=== PATIENT | female | born 1980 | race Caucasian/White ===

== ENCOUNTER 2021-04-10 10:13 | Outpatient (CLI) | payer BC, OTHER, SELFPAY ==
[2021-04-10 11:01] LABS: Anion Gap 10 mmol/L (8-16); Blood Urea Nitrogen 8 mg/dL (7-17); Calcium 8.6 mg/dL (8.4-10.2); Carbon Dioxide 21 mmol/L (22-30); Chloride 107 mmol/L (98-107); Estimated Glomerular Filt Rate > 60; Glucose 95 mg/dL (65-110); Potassium 3.3 mmol/L (3.4-5.0); Sodium 138 mmol/L (137-145)
[2021-04-10 11:02] LABS: INR 1.1; Prothrombin Time 13.7 Seconds (11.1-14.7)
[2021-04-10 11:03] LABS: Partial Thromboplastin Time 30.2 SECONDS (22.3-36.8)
[2021-04-10 11:22] LABS: Basophils Percent Auto 0.5 % (0.2-1.2); Eosinophils Absolute Auto 0.1 K/mm3 (0-0.3); Eosinophils Percent Auto 1.7 % (0-4.4); Hematocrit 42.8 % (37.0-47.0); Hemoglobin 14.3 g/dL (12.0-15.0); Immature Granulocyte Absolute 0.02 K/mm3 (0.00-0.031); Immature Granulocyte Percent A 0.3 % (0-0.5); Lymphocytes Absolute Auto 2.19 K/mm3 (0.9-3.2); Lymphocytes Percent Auto 32.9 % (18.3-44.2); Mean Corpuscular HGB Conc 33.4 g/dl (32-36); Mean Corpuscular Hemoglobin 29.9 pg (26-34); Mean Corpuscular Volume 89.4 fl (80-100); Mean Platelet Volume 9.6 fl (7.4-10.4); Monocytes Absolute Auto 0.5 K/mm3 (0.1-0.6); Monocytes Percent Auto 7.1 % (2.6-8.5); Neutrophils Absolute Auto 3.8 K/mm3 (1.3-6.7); Neutrophils Percent Auto 57.5 % (45.5-73.1); Platelet Count Result 269 k/mm3 (150-375); Red Blood Count 4.79 M/mm3 (4.2-5.4); Red Cell Distribution Width 13.7 % (11.5-14.5); White Blood Count 6.7 K/mm3 (4.5-10.0)
== END 2021-04-10 10:14 | disposition home or self-care (01) ==
LOC: ANHSURGERY 10:18
PROVIDERS: Anesthesiology; Visit Provider Obstetrics & Gynecology
DX: Z01.812 Encounter for preprocedural laboratory examination (principal); R10.2 Pelvic and perineal pain; N18.9 Chronic kidney disease, unspecified
CPT/HCPCS: 36415; 80048; 85025; 85610; 85730

== ENCOUNTER 2021-04-11 01:02 | Day surgery (SDC) | payer BC, OTHER, SELFPAY ==
[2021-04-08 10:26] VITALS: BMI 25.1
--- NOTE | 2021-04-08 11:02 | PC.NURSE ---
Report to the Outpatient Waiting Room, entrance under the green pavilion located off [facility], at time 6:00 on date 04/11/21. OR Time: 7:30. - You will be asked a series of questions to screen for COVID 19 for your protection. - A mask is required within the hospital. - No visitors are allowed at this time. Preoperative COVID Testing Requirements: TO BRING COPY OF CARD No COVID Test needed if: (proof is required; if not received patient will have Rapid Test prior to entry) - Patient has received COVID Vaccine at least 14 days prior to procedure date or - Patient has positive COVID test result within last 90 days of surgery date. COVID Test needed if above criteria is not met Patients may have clear liquids (water, carbonated beverages, clear teas, apple juice) until 3 hours prior to surgery (4:30) with a maximum of 20 ounces. - No food from midnight until time of surgery Take the following medications with a SIP of water the morning of surgery: ALPRAZOLAM, LEVOTHYROXINE, SERTRALINE Medications to discontinue per physician: VITAMINS/SUPPLEMENTS Date to take last dose: 04/07/[address] HANDY MEDINA Please no make-up, nail portuguese, hairspray, perfume, deodorant, or body powder the day of surgery. No jewelry (including any body piercings) or valuables the day of surgery, leave them at home. Please take a shower or bath the night before, or the morning of, surgery with an antibacterial soap. Wear comfortable, loose fitting clothing. - Jewelry must be removed prior to entering the operating room. Rings and piercings that are not removed may be cut off. - The hospital will not accept responsibility for valuables. - Please leave all valuables, including medications, at home the day of surgery. If you are going home after surgery, a licensed hearse driver must drive you home. - NO public transportation without another adult. - We recommend that an adult stay with you for 24 hours following discharge. - We also recommend that you do not drive, make important decision, drink alcoholic beverages, or take any drugs that were not prescribed by your health care provider for at least 24 hours after your discharge time. Follow any additional instructions given to you from your surgeon. Telephone instructions given to LADI PERALTA and asked if any additional questions and then verbalized understanding. Patient advised to call surgeon office or pre surgery nurse liaison [phone] if any additional questions.
--- NOTE | 2021-04-09 11:50 | PM.IMHP ---
H&P: HPI History of Present Illness Date/Time: 04/09/21 11:50 40-year-old multiparous admitted for robotic hysterectomy bilateral salpingectomy secondary to pelvic pain prolapse and dyspareunia. Risks and benefits reviewed including not exclusive of , aspiration pneumonia, bleeding, transfusion, perforation of bowel, bladder, ureters, or other internal organs with need for open laparotomy. She received the ACOG handout entitled hysterectomy as well as individually handout. She had all questions answered and she asked to proceed Chief Complaint: Pelvic pain and prolapse with enlarged uterus Review of Systems Review of Systems: All systems reviewed & are unremarkable except as noted in HPI and below PMFSH Social History Social History Smoking status: Never smoker Alcohol intake: current Alcohol use details: 2/MONTH Substance use: never Substance use type: does not use Spiritual care concerns: Yes (NO WHOLE BLOOD PRODUCTS) Meds Home Medications and Allergies Home Medications Medication Instructions Recorded Confirmed Type alprazolam 1 mg PO TID PRN 04/08/21 04/08/21 History aspirin [Baby Aspirin] 81 mg PO DAILY 04/08/21 04/08/21 History cholecalciferol (vitamin D3) 25 mcg PO DAILY 04/08/21 04/08/21 History [Vitamin D3] famotidine 20 mg PO BID 04/08/21 04/08/21 History glucos sul [id number]-Mn 1 cap PO DAILY 04/08/21 04/08/21 History [Glucosamine Chondroitin] lactobacillus combo no.11 1 cap PO DAILY 04/08/21 04/08/21 History [Probiotic] levothyroxine 44 mcg PO DAILY 04/08/21 04/08/21 History lisdexamfetamine [Vyvanse] 40 mg PO DAILY 04/08/21 04/08/21 History magnesium 250 mg PO DAILY 04/08/21 04/08/21 History omega-3 fatty acids [[place] 3] 2,000 mg PO DAILY 04/08/21 04/08/21 History sertraline 150 mg PO DAILY 04/08/21 04/08/21 History sumatriptan succinate 100 mg PO ONCE PRN 04/08/21 04/08/21 History topiramate 25 mg PO HS 04/08/21 04/08/21 History ubrogepant [Ubrelvy] 50 mg PO ONCE PRN 04/08/21 04/08/21 History Allergies Allergy/AdvReac Type Severity Reaction Status Date / Time Sulfa (Sulfonamide AdvReac Gastrointestinal Verified 04/08/21 10:22 Antibiotics) Upset Exam Const: General: no acute distress Eyes: General: appearance normal, both eyes and all related structures Neck: Neck: supple and no JVD Thyroid: thyroid normal Resp: Effort & Inspection: normal respiratory effort Auscultation: clear to auscultation bilaterally Cardio: Rate: regular rate Rhythm: regular rhythm GI: Inspection: non-distended GI Palp: Yes Soft to palpation, No Tenderness to palpation present (GI) and No Guarding due to palpation present (GI) Auscultation: normal bowel sounds : External Female Exam: normal external appearance Speculum Exam - Vagina: normal appearance of the vagina Speculum Exam - Cervix: normal appearance of the cervix Bimanual exam- vagina & uterus: enlarged and Uterus displaced (Second-degree prolapse noted) Bimanual Exam- Adnexa, other: normal adnexae Skin: General skin exam: no rashes or lesions noted Extrem: General: normal to inspection and no edema Psych: Mental Status: mental status grossly normal Affect: normal affect Assessment and Plan Additional Plan Impression: Pelvic pain enlarged uterus and prolapse Plan: Robotic total vaginectomy and bilateral salpingectomy
[2021-04-11] VITALS (11 sets, daily range): BP systolic 106–130; BP diastolic 54–86; PULSE 60–96; RESP 10–20; TEMP 36.3–37.1; O2SAT 93–100
[2021-04-11] MEDS: LACTATED RINGERS 1,000 ML 30 ML IV CONT ×3 (07:10→09:59)
[2021-04-11] MEDS: ACETAMINOPHEN 500 MG TABLET 1000 MG PO (07:14)
--- NOTE | 2021-04-11 07:14 | P.PNAN_ITS ---
Anes - Initial Pre Proc Eval Procedure: Operation Date: 04/11/21 07:30 Proposed Procedures p Robotic Assisted Total Vaginal Hysterectomy with Bilateral Salpingectomy - Dean Rodarte MD Date/Time: 04/11/21 07:14 Surgeon: Dean Rodarte MD Pre Op Diagnosis: Second Degree Prolpase, Pelvic Pain Patient Data Age: 40 Gender: F Height: 1.55 m Weight: 60.33 kg Allergies Allergy/AdvReac Type Severity Reaction Status Date / Time Sulfa (Sulfonamide AdvReac Mild Gastrointestinal Verified 04/11/21 06:42 Antibiotics) Upset Home Medications Medication Instructions Recorded Confirmed Type alprazolam 1 mg PO TID PRN 04/08/21 04/11/21 History aspirin [Baby Aspirin] 81 mg PO DAILY 04/08/21 04/11/21 History cholecalciferol (vitamin D3) 25 mcg PO DAILY 04/08/21 04/11/21 History [Vitamin D3] famotidine 20 mg PO BID 04/08/21 04/11/21 History glucos sul [id number]-Mn 1 cap PO DAILY 04/08/21 04/11/21 History [Glucosamine Chondroitin] lactobacillus combo no.11 1 cap PO DAILY 04/08/21 04/11/21 History [Probiotic] levothyroxine 44 mcg PO DAILY 04/08/21 04/11/21 History lisdexamfetamine [Vyvanse] 40 mg PO DAILY 04/08/21 04/11/21 History magnesium 250 mg PO DAILY 04/08/21 04/11/21 History omega-3 fatty acids [[place] 3] 2,000 mg PO DAILY 04/08/21 04/11/21 History sertraline 150 mg PO DAILY 04/08/21 04/11/21 History sumatriptan succinate 100 mg PO ONCE PRN 04/08/21 04/11/21 History topiramate 25 mg PO HS 04/08/21 04/11/21 History ubrogepant [Ubrelvy] 50 mg PO ONCE PRN 04/08/21 04/11/21 History Patient hx anesthesia problems: none Family hx anesthesia problems: none Results Review: All pre-operative results and documents have been reviewed as part of the pre-operative evaluation. [facility] Past Medical History Medical History ADHD Anxiety Hypothyroidism Migraine PCOS (polycystic ovarian syndrome) Psoriasis Social History Social History Smoking status: Never smoker Alcohol intake: current Alcohol use details: 2/MONTH Substance use: never Substance use type: does not use Living arrangements: with family Spiritual care concerns: Yes (NO WHOLE BLOOD PRODUCTS) Anes - Eval Final PreProcedure Day of Procedure 04/11/21 07:14 Patient weight: normal Heart: regular rate and rhythm Lungs: clear to auscultation Airway: Mallampati scale class II Neurological: alert and oriented Last oral intake: >/= 8 hours ASA classification: II Emergent: no Anesthetic plan: proceed Anesthesia type and monitoring: general ETT and standard monitoring Results Review: All pre-operative results and documents have been reviewed as part of the pre-operative evaluation. Informed Consent: The patient's anesthetic plan and its attendant risks and benefits were discussed with the patient/family/POA. Questions were solicited and answers provided to the satisfaction of the patient/family/POA.
--- NOTE | 2021-04-11 07:16 | WPDHPUPDATE1 ---
History and Physical Update Update Date/Time: 04/11/21 07:16 History and Physical has been reviewed, including an updated exam of the patient. There are NO changes in the patient's condition. Risks, benefits, and alternatives have been discussed and questions answered. Patient agrees to proceed with procedure.
[2021-04-11] MEDS: SCOPOLAMINE 1.5 MG PATCH TRANSDERM (07:23)
[2021-04-11] MEDS: ceFAZolin 2 GM/D5W 50 ML 2 GM/50 ML BAG IVPB (07:30)
--- NOTE | 2021-04-11 08:41 | W.PM.PROC2 ---
Procedure Note - Detailed Date of Procedure 04/11/21 Pre-op Diagnosis Second Degree Prolpase, Pelvic Pain Post-op Diagnosis same Procedure Performed Robotic total vaginectomy and bilateral salpingectomy Surgeon Dean Rodarte MD Anesthesia general Indications Since 40-year-old female with uterine prolapse and pelvic pain Findings Uterine prolapse. Normal-appearing ovaries and tubes Description of Procedure The patient is prepped draped in normal sterile fashion placed in dorsal lithotomy position. Under excellent general trach anesthesia weighted speculum placed post works vagina. Anterior lip of the cervix grasped with single-tooth tenaculum the uterus sounded 8cm. Serial dilatation with fragmented dilators performed followed passage of the 8. BERTA and the 3. Cold cup. Next the 16 Upper Sorbian catheter was placed in bladder draining clear urine. The remaining instruments removed. Gloves were changed A supraumbilical incision made the Veress needle passed in the abdomen. Abdomen filled with CO2 gas [id number] the 12mm trocar advanced in the abdomen downside visualized no injury seen. Patient placed in Trendelenburg and right left lateral quadrant incisions made the 8mm trocars advanced under direct visualization. An 8mm trocar advanced to the right upper quadrant incision and no injury seen. The robot was docked. Attention was turned to the public relations counselor. The left round ligament grasped, burned, cut. Anteriorly bladder flap was formed by sharply dissecting the peritoneum and reflecting the bladder caudally to the opposite round ligament was clamped, burned, cut. Next the left fallopian tube was grasped and the gently dissected away from the ovarian complex and left attached to its uterine origin. In like fashion the right fallopian tube was left attached to its uterine origin and gently dissected away from the underlying ovary. The left utero-ovarian ligament was clamped, burned, cut and brought to the level of previously cut round ligament conserving the left ovary. Conserving the right ovary, the utero-ovarian ligament was clamped, burned, cut and brought to level of previously cut round ligament on the right. The cardinal broad ligaments on the left were then serially skeletonized. These were clamped, burned, cut Gent the hugging the uterus and cervix on the way down until the uterine vessels could be seen on the left. These were individually clamped, burned, cut. In like fashion the cardinal broad ligaments on the right were serially skeletonized. These were clamped, burned, cut and brought down the lateral edge of the cervix uterus until the vessels on the right could be seen. These were then clamped, burned, cut. Excellent blanching of the uterus was seen and a colpotomy incision was made. The cervix uterus and tubes removed through the vagina. Blood loss estimated at [id number]. The vagina was closed with continuous running 0V lock from lateral edge to lateral edge back to the midline. Irrigation undertaken to clear an excellent hemostasis was noted. The robot was undocked. The supraumbilical incision was closed in a [id number] fashion with 0 Vicryl in the fascia. The remainder of the incisions were closed with 4-0 Monocryl and glue. The patient was awakened and went to recovery in satisfactory condition. All sponge, needle, instrument counts were correct. There were no immediate complications Estimated Blood Loss 25 Drains No Packing No Complications No immediate complications Condition stable Disposition PACU
[2021-04-11] MEDS: fentaNYL CITRATE INJ (*CRX) 100 MCG/2 ML VIAL 25 MCG IV PUSH ×6 (09:12→09:58)
--- NOTE | 2021-04-11 10:02 | SUR.PHASEI ---
1000 sbar faxed floor notified
[2021-04-11] MEDS: KETOROLAC 30 MG/ML VIAL (*BKC) IV PUSH ×2 (10:25→16:12)
[2021-04-11] MEDS: SIMETHICONE 80 MG TAB.CHEW PO ×3 (10:25→23:43)
[2021-04-11] MEDS: ONDANSETRON INJ 4 MG/2 ML VIAL IV PUSH (10:25)
[2021-04-11] MEDS: MORPHINE SULFATE (*CRX) 2 MG/ML INJ (11:15)
[2021-04-11] MEDS: DOCUSATE SODIUM 100 MG CAPSULE PO (16:12)
[2021-04-11] MEDS: ACETAMINOPHEN/CODEINE (*CRX) 300/30 MG TABLET 2 TAB PO (19:31)
[2021-04-11] MEDS: ENOXAPARIN 40 MG/0.4 ML SYRINGE SUB-Q (19:40)
[2021-04-11] MEDS: ACETAMINOPHEN/CODEINE (*CRX) 300/30 MG TABLET 1 TAB PO (23:43)
[2021-04-12] VITALS: BP 104/64; PULSE 75; RESP 18; TEMP 36.8
[2021-04-12 04:15] VITALS: BP 107/71; PULSE 67; RESP 16; TEMP 37.1
[2021-04-12 06:03] LABS: Basophils Percent Auto 0.3 % (0.2-1.2); Eosinophils Absolute Auto 0.1 K/mm3 (0-0.3); Eosinophils Percent Auto 0.5 % (0-4.4); Hematocrit 35.2 % (37.0-47.0); Hemoglobin 11.6 g/dL (12.0-15.0); Immature Granulocyte Absolute 0.03 K/mm3 (0.00-0.031); Immature Granulocyte Percent A 0.3 % (0-0.5); Lymphocytes Absolute Auto 3.19 K/mm3 (0.9-3.2); Lymphocytes Percent Auto 28.7 % (18.3-44.2); Mean Corpuscular Hemoglobin 29.9 pg (26-34); Mean Corpuscular Volume 90.7 fl (80-100); Mean Platelet Volume 9.9 fl (7.4-10.4); Monocytes Absolute Auto 0.8 K/mm3 (0.1-0.6); Monocytes Percent Auto 7.1 % (2.6-8.5); Neutrophils Percent Auto 63.1 % (45.5-73.1); Platelet Count Result 214 k/mm3 (150-375); Red Blood Count 3.88 M/mm3 (4.2-5.4); Red Cell Distribution Width 13.5 % (11.5-14.5); White Blood Count 11.1 K/mm3 (4.5-10.0)
--- NOTE | 2021-04-12 07:24 | PM.DS ---
DS: Admitting Diagnosis Discharge Date 04/12/21 Admitting Diagnosis pelvic pain prolapse and dyspareunia. DS: Summary Hospital Course Hospital Course: 40-year-old multiparous admitted for robotic hysterectomy bilateral salpingectomy secondary to pelvic pain prolapse and dyspareunia. The above procedure was performed with no complications. She is doing well post op. She states her pain is well controlled with PO medications. She reports minimal bleeding. She is ambulating up to the chair. Her denson catheter was removed. She is tolerating PO without N/V. She reports passing flatus. Status at Discharge Overall status at discharge: patient is progressing back to baseline Time Spent with Patient Time attestation: Total time spent providing and/or coordinating discharge services: Time spent: Less than 30 minutes Exam Const: General: comfortable and no acute distress Limitations: no limitations Resp: Effort & Inspection: normal respiratory effort Auscultation: clear to auscultation bilaterally Cardio: Rate: regular rate Rhythm: regular rhythm GI: Inspection: non-distended GI Palp: Yes Soft to palpation, Yes Tenderness to palpation present (GI) (milder tenderness to deep palpation) and No Guarding due to palpation present (GI) Auscultation: normal bowel sounds Other: incisions C/D/I covered with dermabond Urinary Catheter: Urinary Catheter: urine clear Skin: General skin exam: normal color Extrem: General: normal to inspection Psych: Mental Status: mental status grossly normal Affect: normal affect DS: Data Data Completed and Pending Pending studies at discharge: Pending at discharge 04/11/21 08:10 Surgical [PTH] Routine Labs on day of discharge: Labs from last 24 hours 04/12/21 04:44 WBC 11.1 H RBC 3.88 L Hgb 11.6 L Hct 35.2 L MCV 90.7 MCH 29.9 MCHC 33.0 RDW 13.5 Plt Count 214 MPV 9.9 Immature Gran % (Auto) 0.3 Neut % (Auto) 63.1 Lymph % (Auto) 28.7 [place] % (Auto) 7.1 Eos % (Auto) 0.5 Baso % (Auto) 0.3 Lymph # (Auto) 3.19 [place] # (Auto) 0.8 H Eos # (Auto) 0.1 Baso # (Auto) 0.0 Abs Immat Gran (auto) 0.03 Absolute Neuts (auto) 7.0 H Absolute Nucleated RBC 0.0 Nucleated RBC % 0.0 Discharge Plan Discharge Patient Disposition: Home, Self-Care Discharge Instructions: Remove the Scopolamine patch that was placed behind your ear in 72 hours or less. Wash your hands after touching. Stand Alone Forms: General Discharge Instructions Follow-up/Referrals: Dean Rodarte MD [Physician] - Discharge Medications: New acetaminophen-codeine 300-30 mg tablet 1 tablet PO Q4H PRN (Reason: pain) Qty: 20 RF: 0 No Action alprazolam 1 mg Tablet 1 mg PO TID PRN (Reason: Anxiety) RF: 0 sumatriptan succinate 100 mg tablet 100 mg PO ONCE PRN (Reason: Migraine Headache) RF: 0 sertraline 100 mg tablet 150 mg PO DAILY RF: 0 topiramate 25 mg tablet 25 mg PO HS RF: 0 levothyroxine 88 mcg tablet 44 mcg PO DAILY RF: 0 famotidine 20 mg Tablet 20 mg PO BID RF: 0 aspirin [Baby Aspirin] 81 mg Tablet,Chewable 81 mg PO DAILY RF: 0 magnesium 250 mg Tablet 250 mg PO DAILY RF: 0 [place] 3 Capsule 2,000 mg PO DAILY RF: 0 cholecalciferol (vitamin D3) [Vitamin D3] 25 mcg (1,000 unit) Tablet 25 mcg PO DAILY RF: 0 Vyvanse 40 mg Capsule 40 mg PO DAILY RF: 0 Probiotic 15 billion cell Capsule, Sprinkle 1 cap PO DAILY RF: 0 Glucosamine Chondroitin 550-30-1 mg Capsule 1 cap PO DAILY RF: 0 Ubrelvy 50 mg tablet 50 mg PO ONCE PRN (Reason: Migraine Headache) RF: 0
[2021-04-12 08:30] VITALS: BP 119/67; PULSE 73; RESP 18; TEMP 36.2; O2SAT 99
[2021-04-12] MEDS: IBUPROFEN 600 MG TABLET PO (08:35)
[2021-04-12] MEDS: DOCUSATE SODIUM 100 MG CAPSULE PO (08:35)
[2021-04-12] MEDS: ACETAMINOPHEN/CODEINE (*CRX) 300/30 MG TABLET 1 TAB PO (08:36)
== END 2021-04-12 10:20 | disposition home or self-care (01) ==
LOC: ANHSURGERY 07:17 → ANHOB2 10:21
PROVIDERS: Visit Provider Obstetrics & Gynecology
PROC: (CPT 58552; principal; 2021-04-11 07:30)
DX: N81.2 Incomplete uterovaginal prolapse (principal); R10.2 Pelvic and perineal pain; N94.10 Unspecified dyspareunia; Z79.82 Long term (current) use of aspirin; F90.9 Attention-deficit hyperactivity disorder, unspecified type; E03.9 Hypothyroidism, unspecified; F41.9 Anxiety disorder, unspecified; E28.2 Polycystic ovarian syndrome; L40.9 Psoriasis, unspecified
CPT/HCPCS: 58552; S2900; 36415; 80048; 85025; 85610; 85730; 88307; 99199; A9270; J0330; J0690; J1100; J1650; J1885; J2250; J2270; J2405; J2704; J3010; J7030; J7120